=== PATIENT | female | born 1990 | race Two or more races ===

== ENCOUNTER 2023-07-29 17:02 | Emergency (ER) | payer OTHER, MEDICAID ==
[~2023-07-29] VITALS: Ht 157.5 cm; Wt 82.0 kg
[2023-07-29 18:54] LABS: Urine Bacteria FEW /hpf (None Seen); Urine Blood Negative /uL (Negative); Urine Clarity HAZY (Clear); Urine Color Yellow (Yellow); Urine Mucus FEW (None Seen); Urine Protein, UAD TRACE (Negative); Urine Specific Gravity 1.031 (1.001-1.035); Urine Urobilinogen Normal (Negative); Urine WBC 5 /hpf (0 - 5); Urine pH 5.5 (5.0-8.0)
[2023-07-29] MEDS ORDERED: PANTOPRAZOLE 40 MG/10 ML VIAL INJ IV ONE (19:00)
[2023-07-29] MEDS ORDERED: ONDANSETRON HCL 4 MG/2 ML VIAL IV ONE (19:00)
[2023-07-29] MEDS ORDERED: SODIUM CHLORIDE 0.9% 1,000 ML IVB ONE (19:00)
[2023-07-29 19:37] LABS: Basophils # (auto) 0 10 ^3/uL (0-0.2); Basophils % (auto) 0.2 % (0.0-2.0); Eosinophils # (auto) 0 10 ^3/uL (0-0.8); Hematocrit 41.3 % (36.0-46.0); Hemoglobin 13.6 g/dL (12.2-16.2); Lymphocytes # (auto) 0.7 10 ^3/uL (0.4-5.4); Lymphocytes % (auto) 4.8 % (10.0-50.0); Mean Corpuscular Hemoglobin 30.7 pg (28.0-32.0); Mean Corpuscular Hgb Conc. 32.8 g/dL (32.0-36.0); Mean Corpuscular Volume 93.5 fL (80.0-100.0); Monocytes # (auto) 0.7 10 ^3/uL (0-1.3); Monocytes % (auto) 4.2 % (0.0-12.0); Neutrophils # (auto) 14.2 10 ^3/uL (1.6-8.6); Neutrophils % (auto) 90.8 % (37.0-80.0); Red Blood Cells 4.42 10^6/uL (4.0-5.20); Red Cell Distribution Width 13.4 % (11.8-14.3); White Blood Cell 15.6 10^3/uL (4.4-10.8)
[2023-07-29 19:40] LABS: Alanine Aminotransferase 170 U/L (7-40); Albumin 4.7 g/dL (3.2-4.8); Alkaline Phosphatase 132 U/L (46-116); Anion Gap 7 (5-15); Aspartate Aminotransferase 389 U/L (13-40); BUN/Creatinine Ratio 8.7 (10.0-20.0); Bilirubin, Total 1.1 mg/dL (0.2-1.0); Blood Urea Nitrogen 8 mg/dL (9-23); Calcium 9.5 mg/dL (8.7-10.4); Carbon Dioxide 26 mmol/L (20-30); Chloride 103 mmol/L (98-107); Glucose 153 mg/dL (74-106); Lipase 66 U/L (12-53); Potassium 4.1 mmol/L (3.5-5.1); Sodium 136 mmol/L (136-145); Total Protein 7.9 g/dL (5.7-8.2)
[2023-07-29] MEDS ORDERED: cefTRIAXone 1GM/50ML D5W 50 ML IV ONE (20:30)
[2023-07-29] MEDS ORDERED: metroNIDAZOLE 500MG/100ML 100 ML IV ONE (20:30)
[2023-07-29] MEDS ORDERED: HYDROcodone-ACET 10/325MG TAB PO ONE (22:15)
[2023-07-29 22:48] VITALS: BP 116/79; TEMP 98
[2023-07-29 22:50] VITALS: PULSE 80; RESP 20; O2SAT 97
== END 2023-07-29 23:17 | disposition short-term general hospital (02) ==
LOC: ER 17:02
DX: N39.0 Urinary tract infection, site not specified (principal); R10.12 Left upper quadrant pain; K80.20 Calculus of gallbladder without cholecystitis without obstruction; Z98.890 Other specified postprocedural states
CPT/HCPCS: 36415; 76705; 80053; 81001; 83690; 85025; 96365; 96366; 96375; 99285; C9113; J0696; J7030